=== PATIENT | male | born 1965 | race Caucasian/White ===

== ENCOUNTER → 2019-02-19 | Outpatient (CLI) | payer BC, OTHER ==
[~2019-02-19] VITALS: Ht 170.2 cm; Wt 72.6 kg
[~2019-02-19] MED LIST: AUGMENTIN 875-1 EACH PO; IBUPROFEN 400400 M2 PO; MOBIC15 MG PO; PARACETAMOL PO; TELMISARTAN-HC1 EAC2 PO
--- NOTE | ~2019-02-19 | HPC ---
[facility] [address] [address] PAIN MANAGEMENT CONSULTATION Name: SHADE BOBO Room #: REG AYESHA Esequiel#: [id number] Admission: 02/19/19 Attend Phys: Otto Curiel MD Discharge: Date of : 63 Report #: [id number] THIS REPORT FOR: //name// CC: Yvonne Curiel DATE OF SERVICE: 02/19/2019 CHIEF COMPLAINT: History of back pain. HISTORY: The patient is a 53-year-old gentleman who has been referred to the Pain Clinic because of history of chronic pain. The patient states that in the past, he has had some back pain. He has had an MRI, which showed that he had had a bulging disk in the lower portion of his back. He has come to [place] and is seeking healthcare. He has pain, which is in his low back area and radiates down to the left leg just below his knee. Epidural steroid injections have been helpful. Upper Sorbian is not his first language. He speaks [place]. He does speak some other languages. Upper Sorbian is one of the minor languages. He has been doing reasonably well. Because of the past history of back pain, he would like to get established should he at some point require treatment. Over the last 8-gej-q-half months, he has noticed some increased pain. Notes his pain is worse with prolonged sitting and lifting. It involves primarily his left side at this point. He has used ibuprofen as well as some codeine medications. ALLERGIES: No known drug allergies. CURRENT MEDICATIONS: Mobic 15 mg, ibuprofen 400 mg p.r.n., Paracetamol 500 mg, Augmentin 875/125 b.i.d. has taken it for 10 days, telmisartan/hydrochlorothiazide 80/12.5 mg daily. PAST MEDICAL HISTORY: Hypertension. SEASONAL ALLERGIES: PERFUMES can cause headaches and sinus problems. PAST SURGICAL HISTORY: The patient has had surgery in the past in 1971 associated with bronchitis. 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 REVIEW OF SYSTEMS: Generally good health, headaches, wears glasses, chronic sinus problems, and abdominal pain. LABORATORY DATA: The patient has MRI with findings consistent with disc herniation at L4-L5. PAIN CLINIC ASSESSMENT/PQRS: [address] [address] PAIN MANAGEMENT CONSULTATION Name: SHADE BOBO Room #: REG AYESHA Pablo.#: [id number] Admission: 02/19/19 Attend Phys: Otto Curiel MD Discharge: Date of : 63 Report #: [id number] 1. The patient is not being treated for osteoarthritis or rheumatoid arthritis. 2. Height 5 feet 7 inches, weight 160 pounds, BMI is 25.1. 3. Vital signs: Blood pressure 136/94, pulse 92, respiratory rate 16, and room air saturation 98%. 4. Pain intensity, zero today. 5. Fall history: The patient has not fallen in the last 3 months. 6. Blood thinner. The patient is not on a blood thinning medication. 7. Hypertension. The patient is being treated for hypertension. 8. Opioids greater than 6 weeks. The patient is not on opioid regimen. 9. Risk assessment tool, low for opioid use. 10. Functional assessment tool, . 11. Recreational drug use: The patient denies. 12. Tobacco: The patient has never smoked. 13. Alcohol: The patient occasionally drinks alcoholic beverages. PHYSICAL EXAMINATION: GENERAL: The patient is a well-developed, well-nourished black male, appears his stated age. He is alert and oriented x 3. His affect is appropriate. Speech, the patient is fluent [place]. He is able to speak [place] Sorbian. NECK: Without adenopathy or JVD. ABDOMEN: Nontender. EXTREMITIES: Upper extremity muscle strength judged to be 5/5 for the major muscle groups in the upper extremity. Lower extremity muscle strength judged to be 5/5 for the major muscle groups in the lower extremity. HEART: Regular rate. S1, S2. CHEST: Clear to auscultation. MUSCULOSKELETAL: The patient is without significant scoliosis, kyphosis or lordosis. The patient has pain when it is present in the lower portion of his back, which radiates down into the left side and left buttocks area to the level of the knee, not problematic today. Left lateral bending and right lateral bending. Anterior and posterior spring tests, Walker's tests are negative. Deep tendon reflexes are +1 for the biceps bilaterally in the upper extremity, trace for the patellar reflexes. IMPRESSION: 1. History of lumbar radiculopathy at L5-S1 with a herniated disc shown on an MRI, which images were provided on a photocopy. 2. Hypertension. RECOMMENDATIONS: We discussed treatment options with the patient. Risks and benefits of an epidural steroid injection were discussed. The patient has had an epidural steroid injection in the past. At this juncture, things are going reasonably well. The patient wanted to get acquainted with a Pain Clinic, should his pain become more problematic in the future. Should his pain become more problematic, he will return to the Pain Clinic, at which time, we can proceed with an epidural steroid injection. He has found that these have been [facility] [address] [place] [address] PAIN MANAGEMENT CONSULTATION Name: SHADE BOBO Room #: REG [facility]#: [id number] Admission: 02/19/19 Attend Phys: Otto Curiel MD Discharge: Date of : 63 Report #: [id number] beneficial in the past. We would like to thank you for letting us participate in his care. We hope he continues to improve. By: [id number] Otto Curiel MD /nt
[2019-02-19 09:13] VITALS: BP 136/94
--- NOTE | 2019-02-19 10:02 | NUR ---
Pain Clinic Assessment: 1. History of Osteoarthritis: Not Applicable History of Rheumatoid Arthritis: Not Applicable 2. Height: 5 ft. 7 in. 170.2 cm. Weight: 160.0 lb. oz. 72.576 kg. Patient's BMI: 25.1 3. Vital Signs: BP: 136/94 Pulse: 92 Resp: 16 Temp: 02 Sat: 98 ECG Mon: 4. Pain Intensity: NO PAIN TODAY 5. Fall Risk: Dizziness: N Needs help standing or walking: N Fallen in the last 3 months: N Fall risk comments: 6. Patient on Blood Thinner: None 7. History of Hypertension: Y 8. Opioid Therapy greater than 6 weeks: N Opiate Contract Signed: 9. Risk Assessment Tool Provided: 10. Functional Assessment Tool: 11. Recreational Drug Use: Never Drug Type: Tobacco Use: Never Smoker Tobacco Type: Amount or Packs/day: How Many Years: Alcohol Use: Yes Frequency: Special Occasions Quant: 1-2
== END ==
LOC: PAIN 06:43 → EDBD 06:43 → PAIN 09:51
DX: G89.29 Other chronic pain (principal); M51.16 Intervertebral disc disorders with radiculopathy, lumbar region; I10 Essential (primary) hypertension; Z79.899 Other long term (current) drug therapy; Z79.891 Long term (current) use of opiate analgesic